=== PATIENT | male | born 1970 | race Caucasian/White ===

== ENCOUNTER 2025-05-05 18:11 | Emergency (ER) | payer OTHER, SELFPAY ==
--- NOTE | ~2025-05-05 | CT_ITS ---
CLINICAL HISTORY: pelvic pain x3 months worsening ? hx bladder mass CT abdomen and pelvis with contrast Comparison: None provided Findings: There is minimal dependent atelectasis. There is trace right pleural effusion. The liver, gallbladder, pancreas, spleen, adrenal glands, and kidneys are unremarkable. The appendix is normal. The remainder of the gastrointestinal tract is unremarkable. There is no free fluid or free air. There are no enlarged lymph nodes. There is no hernia. The aorta and IVC appear normal. The prostate is mildly enlarged. The bladder is decompressed. No bladder mass is identified. There is no fracture or suspicious lytic or sclerotic lesion. IMPRESSION: 1. No acute abnormality in the abdomen or pelvis. 2. Trace right pleural effusion. This document has been electronically signed by: Doug Anthony MD on 05/06/2025 00:51:30
[2025-05-05 18:49] VITALS: BP 140/72; PULSE 79; RESP 18; TEMP 36.7; O2SAT 99; BMI 31.5
--- NOTE | 2025-05-05 18:50 | ED.GENADULT ---
HPI - General Adult General Chief complaint: Urogenital-Male Stated complaint: abd pain Time Seen by Provider: 05/05/25 22:23 Source: patient, family and RN notes reviewed Mode of arrival: ambulatory Limitations: no limitations History of Present Illness ED Provider: Dr. Trisha Gonzalez HPI narrative: 55-year-old male with history of hypertension, hyperlipidemia presenting with left lower quadrant abdominal pain radiating to his back ongoing for the last 3 months. Patient admits that he size primary care doctor several weeks ago and was diagnosed with ?an enlarged prostate?. Was prescribed Flomax but admits that is not helping his symptoms. Denies dysuria but does admit to frequency. Describes a constant pain that is ?not that bad? and radiates to the back. No reported fevers. No hematuria. Denies changes in his bowel habits. Has been having 2 bowel movements a day that are reportedly normal without blood. No nausea or vomiting. Denies chest pain or difficulty breathing. Has been feeling well otherwise. Of note, patient states that about 12 years ago he was diagnosed with a ?something on his bladder? but isn't exactly sure what this diagnosis entails. He has never had any further imaging or follow-up about it. Related Data Allergies Allergy/AdvReac Type Severity Reaction Status Date / Time No Known Allergies Allergy Verified 05/05/25 18:57 Review of Systems Review of Systems: Yes all other systems are reviewed and are negative (As per HPI) [facility] Past Medical History Attestation statement: The following information was validated with the patient. [facility] Narrative: Palpitations, hyperlipidemia Social History Social History Unable to assess alcohol history related to: Unknown Use of substances other than those prescribed or required for medical reasons: Unknown Advance Directives: No Advance Directives Information Provided: No Do you have a plan to hurt others: No Plan Physical Exam ED Vital Signs: Vital Signs - 24 hr 05/05/25 18:49 05/06/25 01:28 Temperature 98.0 F 98.4 F Pulse Rate 79 54 Respiratory Rate 18 18 Blood Pressure 140/72 H 130/80 Pulse Oximetry 99 100 Oxygen Delivery Method Room Air Room Air BMI result Body Mass Index 31.5 Constitutional: ?Well-appearing, no acute distress HEENT: ?No lymphadenopathy, neck is supple, trachea midline, PERRLA, EOMI, no nystagmus Chest: ?Equal rise, no crepitus, no deformities Respiratory: ?Lungs are clear to auscultation bilaterally, no wheezes/rales/rhonchi Cardio: ?Regular rate and rhythm, no murmurs rubs or gallops, peripheral pulses strong GI: ?Soft, nondistended, nontender to palpation, positive bowel sounds in all quadrants, no palpable mass : Deferred Skin: ?Warm, dry, no rashes Musculoskeletal: ?No deformities, normal tone Neuro: ?Alert and oriented, cranial nerves 2-12 intact, equal strength and sensation in bilateral upper and lower extremities Psych: ?Normal affect, appropriate mood, no visual or auditory hallucinations Course Course Course Narrative: 05/05/251850 OVIDIO Early This is a Rapid Medical Examination (RME) performed by Danae Nelson PA-C in triage. Full HPI, ROS, assessment and treatment plan per primary provider in the Main ED. Hx: 55 yo M here for eval of lower abd pain, back pain, inc urinary freq, and dysuria x weeks. saw PCP for this 6 wks ago, said his prostate was enlarged, he was started on flomax without much relief. Plan: labs, UA Medications Administered Discontinued Medications Generic Name Dose Route Start Last Admin Trade Name Freq PRN Reason Stop Dose Admin Iohexol 85 ml 05/06/25 00:14 05/06/25 00:15 Iohexol 350 Mg/Ml 100 Ml Infus..Btl IV 05/06/25 00:15 85 ml ONCE ONE Administration Medical Decision Making Medical Decision Making [facility] Narrative: This patient presents today with a chief complaint of abdominal pain. Differential diagnosis for this patient is broad. It includes diverticulitis, appendicitis, UTI, enlarged prostate, renal insufficiency, bowel obstruction, pyelonephritis, vascular pathology, among many others. A broad-based workup based on history and physical examination was obtained. 11:40 p.m. patient is resting comfortably with a nonsurgical abdomen. His blood work is reassuring. No evidence of renal insufficiency or UTI. That being said, the 3 months of pain radiating to his back associated with his age, we will add on a CAT scan to evaluate for any potential masses or intra-abdominal pathology. Discuss this with the patient at length. Ultimately I think he will need a urology referral for his enlarged prostate and urinary frequency. Differential Diagnosis Differential Diagnoses: The differential diagnosis associated with the presentation includes (As above) Admission/Observation Consideration of admission/observation: Escalation of care including admission/observation considered Lab Data 05/05/25 20:21 05/05/25 20:21 Labs: Lab Results 05/05/25 Range/Units 20:21 WBC 8.3 (4.8-10.8) X10*3/uL RBC 5.34 (4.60-5.80) X10*6/uL Hgb 14.1 (14.0-18.0) g/dl Hct 41.4 L (42.0-52.0) % MCV 77.5 L (80.0-98.0) fL MCH 26.4 L (27.0-33.0) pg MCHC 34.1 (31.0-36.0) g/dl RDW 12.8 (11.0-16.0) % Plt Count 205 (160-400) X10*3/uL MPV 9.6 (9.4-12.4) fL Immature Gran % (Auto) 0.5 H (0.0-0.4) % Neut % (Auto) 65.3 (45-73) % Lymph % (Auto) 24.4 (20-40) % [place] % (Auto) 7.9 (2-11) % Eos % (Auto) 1.3 (0-4) % Baso % (Auto) 0.6 (0-2) % Lymph # (Auto) 2.0 (1.2-4.9) X10*3/uL [place] # (Auto) 0.7 (0.1-1.2) X10*3/uL Eos # (Auto) 0.1 (0.0-0.4) X10*3/uL Baso # (Auto) 0.1 (0.0-0.2) X10*3/uL Abs Immat Gran (auto) 0.04 H (0.00-0.03) X10*3/uL Absolute Neuts (auto) 5.4 (2.0-8.3) x10*3/uL Absolute Nucleated RBC 0.000 (0.0-0.012) X10*3/uL Nucleated RBC % (auto) 0.0 (0.0-0.2) /100WBC Sodium 144 (135-145) mmol/L Potassium 3.6 (3.3-5.1) mmol/L Chloride 108 (96-108) mmol/L Carbon Dioxide 28 (22-29) mmol/L Anion Gap 12 (12-20) BUN 8 L (9-16) mg/dL Creatinine 0.74 (0.5-1.4) mg/dL Estim Creat Clear Calc 132.5 Estimated GFR > 60 Random Glucose 126 H (60-115) mg/dL Calcium 9.1 (8.4-10.2) mg/dL Magnesium 2.1 (1.6-2.6) mg/dL Total Bilirubin 0.4 (0.0-1.0) mg/dL AST 23 (5-37) U/L ALT 42 H (0-40) U/L Alkaline Phosphatase 73 (39-117) U/L Total Protein 8.0 (6.5-8.0) g/dL Albumin 5.1 H (3.5-5.0) g/dL Urine Color Yellow Urine Appearance Clear Urine pH 7.5 (5.0-9.0) Ur Specific [place] <= 1.005 (1.005-1.025) Urine Protein Negative (Neg-Trace) mg/dL Urine Glucose (UA) Negative (Negative) mg/dL Urine Ketones Negative (Negative) mg/dL Urine Blood Negative (Negative) Urine Nitrite Negative (Negative) Ur Leukocyte Esterase Negative (Negative) Discharge Plan Discharge Clinical Impression: Abdominal pain, chronic, bilateral lower quadrant Patient Disposition: Home, Self-Care Instructions: Abdominal Pain (ED) Additional Instructions: Thankfully your workup today has been reassuring. Blood work, cat scan and physical exam all appear very normal. If you develop any new or worsening symptoms including: Fevers greater than 100?, worsening abdominal pain, vomiting, bloody stools, you should return to the emergency department immediately. Otherwise follow-up with your primary care doctor as soon as possible. [facility] will be contacting you within 2 business?days after being discharged from the Emergency?Department.? During this?phone call, they will inform you when your follow up appointment will be scheduled. If you have not received a call from [facility] after 2 business?days, please call the?office at [phone]. Referrals: [facility] [Provider Group, Urology] Referral Note: Dysuria, chronic pelvic pain, history of bladder mass Clinical Impression: Abdominal pain, chronic, bilateral lower quadrant Print Language: Uzbek
[2025-05-05 20:28] LABS: MANUAL DIFF FLAG NO
[2025-05-05 20:30] LABS: Hematocrit 41.4 % (42.0-52.0); Hemoglobin 14.1 g/dl (14.0-18.0); Imm Gran Abs Auto 0.04 X10*3/uL (0.00-0.03); Imm Gran Pct Auto 0.5 % (0.0-0.4); Lymphocytes Absolute Auto 2.0 X10*3/uL (1.2-4.9); Mean Corpuscular HGB Conc 34.1 g/dl (31.0-36.0); Mean Corpuscular Hemoglobin 26.4 pg (27.0-33.0); Mean Corpuscular Volume 77.5 fL (80.0-98.0); NRBC Abs Auto 0.000 X10*3/uL (0.0-0.012); NRBC Pct Auto 0.0 /100WBC (0.0-0.2); Platelet Count 205 X10*3/uL (160-400); Red Blood Count 5.34 X10*6/uL (4.60-5.80); White Blood Count 8.3 X10*3/uL (4.8-10.8)
[2025-05-05 20:33] LABS: Appearance Urine Clear; Glucose Urine UA Negative (Negative); PH 7.5 (5.0-9.0); Specific Gravity - Urine <= 1.005 (1.005-1.025)
[2025-05-05 20:43] LABS: Alanine Aminotransferase 42 U/L (0-40); Albumin Level 5.1 g/dL (3.5-5.0); Alkaline Phosphatase 73 U/L (39-117); Anion Gap 12 (12-20); Aspartate Amino Transferase 23 U/L (5-37); Blood Urea Nitrogen 8 mg/dL (9-16); Calcium 9.1 mg/dL (8.4-10.2); Carbon Dioxide 28 mmol/L (22-29); Chloride 108 mmol/L (96-108); Creatinine Clr Calc Pharmacy 132.5; Estimated Glomerular Filt Rate > 60; Magnesium 2.1 mg/dL (1.6-2.6); Potassium 3.6 mmol/L (3.3-5.1); Sodium 144 mmol/L (135-145); Total Protein 8.0 g/dL (6.5-8.0)
[2025-05-06] MEDS: iohexoL 350 MG/ML 100 ML INFUS..BTL 85 ML IV (00:15)
[2025-05-06 01:28] VITALS: BP 130/80; PULSE 54; RESP 18; TEMP 36.9; O2SAT 100
[2025-05-06 02:15] VITALS: BP 0/0; PULSE 0; RESP 0; TEMP -17.7; TEMP 0; O2SAT 0
== END 2025-05-06 02:19 | disposition home or self-care (01) ==
PROVIDERS: Physician Assistant Medical; Emergency Provider Emergency Medicine
DX: R10.2 Pelvic and perineal pain (principal); R10.32 Left lower quadrant pain; I10 Essential (primary) hypertension; E78.5 Hyperlipidemia, unspecified
CPT/HCPCS: 36415; 74177; 80053; 81003; 83735; 85025; 99284; Q9967

== ENCOUNTER → 2025-05-05 23:27 | Outpatient (BNV) | payer OTHER, SELFPAY | PROVIDERS: Emergency Provider Emergency Medicine; Visit Provider Radiology Diagnostic Radiology | DX: R10.2 Pelvic and perineal pain (principal) | CPT/HCPCS: 74177 ==

== ENCOUNTER 2025-07-30 14:49 | Outpatient (AMB) | payer OTHER, SELFPAY ==
--- NOTE | 2025-07-30 14:46 | MHC.OFFVIS ---
Intake Visit Reasons: BPH and urinary frequency Intake Note: New Patient is present for BPH ,Urinary Frequency Urology Rx: none PVR:55 mls Blood Thinners:none Imaging completed: none Combustion Analyst Required: No Accompanied by: Self / Same As Patient Allergies No Known Allergies Allergy (Verified 07/30/25 14:47) HPI Comments Details: Niko is a pleasant male. He is seen for the following urologic conditions - lower urinary tract symptoms Lower urinary tract symptoms Primarily nocturia Current medications tamsulosin PFSH Social History Unable to assess alcohol history related to: Unknown Office Procedures Post Void Residual Post Residual Void Post Void Residual (PVR): 55 [id number] Void Residual by ultrasound Results AMB Urinalysis, Automated UA Leukoctes 0 [place]/uL Last Edit by Melina Dsouza MA on 07/30/25 17:07 UA Nitrite Negative Last Edit by Melina Dsouza, NICA on 07/30/25 17:07 UA Urobilinogen 0.2 mg/dL Last Edit by Melina Dsouza MA on 07/30/25 17:07 UA Protein 0 mg/dL Last Edit by Melina Dsouza, NICA on 07/30/25 17:07 UA pH 8.0 Last Edit by Melina Dsouza MA on 07/30/25 17:07 UA Blood 0 [place]/uL Last Edit by Melina Dsouza, NICA on 07/30/25 17:07 UA Specific [place] 1.010 Last Edit by Melina Dsouza, NICA on 07/30/25 17:07 UA Ketone Negative Last Edit by Melina Dsouza MA on 07/30/25 17:07 UA Bilirubin 0 mg/dL Last Edit by Melina Dsouza MA on 07/30/25 17:07 UA Glucose 0 mg/dL Last Edit by Melina Dsouza MA on 07/30/25 17:07 Assessment & Plan Assessment & Plan (1) Nocturia more than twice per night: Code(s): R35.1 - Nocturia Category: Medical Orders: Orders AMB Post Void Residual by ultrasound Today R35.1 - Nocturia AMB Urinalysis Automated Today Z13.9 - Encounter for screening, unspecified Coding Diagnoses Nocturia more than twice per night R35.1 CPT Codes Post Residual Void - PVR CPT Code: 53328-Ptdv Void Residual by ultrasound ([id number])
== END 2025-07-30 15:26 | disposition home or self-care (01) ==
LOC: HO.HUSH 14:49
PROVIDERS: Visit Provider Urology
DX: Z13.9 Encounter for screening, unspecified (principal)

== ENCOUNTER → 2025-07-30 14:49 | Outpatient (BNVA) | payer OTHER, SELFPAY | PROVIDERS: Visit Provider Urology | DX: R35.1 Nocturia (principal) | CPT/HCPCS: 51798; 81003 ==